=== PATIENT | female | born 1945 | race Caucasian/White ===

== ENCOUNTER 2021-09-09 19:29 | Emergency (ER) | payer MEDICARE, SELFPAY ==
[2021-09-09 19:39] VITALS: BP 155/110; PULSE 75; RESP 18; TEMP 36.8; O2SAT 92
[2021-09-09 19:58] VITALS: BP 155/110; PULSE 75; RESP 18; TEMP 36.8; O2SAT 92
--- NOTE | 2021-09-09 20:00 | ED.FEMALEGU ---
HPI - Female Genitourinary General Chief complaint: Urogenital-Female Stated complaint: bladder infection Time Seen by Provider: 09/09/21 19:55 Source: patient Mode of arrival: ambulatory Limitations: no limitations History of Present Illness HPI Narrative: 76-year-old female who presents to [facility] with complaints of 3-day history of urinary burning, pain and pressure with urination and urinary frequency and urgency. Patient voices prior history of urinary tract infection. Patient states that she has taken Macrobid in the past. Discussed recommendation of Keflex instead for UTI, patient reports can take penicillin.Patient report that she has no vaginal discharge or itching.Patient denies any fevers chills or sweats, denies any nausea or vomiting. MD elicited complaint: UTI Onset (ago): day(s) (3) Related Data Home Medications Medication Instructions Recorded Confirmed albuterol sulfate 90 mcg/actuation inh inhalation 09/09/21 aerosol inhaler (ProAir HFA) albuterol sulfate 90 mcg/actuation inhalation 09/09/21 aerosol inhaler (ProAir HFA) chlordiazepoxide HCl 25 mg capsule cap 09/09/21 fenofibrate 160 mg tablet tablet 09/09/21 ipratropium bromide 42 mcg (0.06 spray intranasal 09/09/21 %) nasal spray levothyroxine 125 mcg tablet tablet 09/09/21 losartan 50 mg tablet tablet 09/09/21 metoprolol succinate 50 mg tablet PO 09/09/21 tablet,extended release 24 hr ofloxacin 0.3 % ear drops drp 09/09/21 potassium chloride 8 mEq tablet PO 09/09/21 tablet,extended release pravastatin 20 mg tablet tablet 09/09/21 Allergies Allergy/AdvReac Type Severity Reaction Status Date / Time azithromycin Allergy Intermediate Rash Verified 12/06/17 19:05 moxifloxacin Allergy Intermediate Other Verified 12/06/17 19:05 Sulfa (Sulfonamide Allergy Intermediate Other Verified 12/06/17 19:05 Antibiotics) caffeine Allergy Unknown Other Verified 12/06/17 19:05 ciprofloxacin Allergy Unknown BLISTERS Verified 12/06/17 19:54 IN MOUTH doxycycline Allergy Unknown N/V Verified 12/06/17 19:54 propoxyphene Allergy Unknown Other Verified 12/06/17 19:05 acetaminophen AdvReac Intermediate Nausea and Verified 12/06/17 19:05 Vomiting aspirin AdvReac Intermediate Nausea and Verified 12/06/17 19:05 Vomiting ceftibuten AdvReac Intermediate Other Verified 12/06/17 19:05 hydrocodone AdvReac Intermediate Nausea and Verified 12/06/17 19:05 Vomiting Review of Systems Review of Systems: CONSTITUTIONAL: Denies fever, chills, or sweats. EYES: Denies visual changes, redness, or discharge. ENT: Denies rhinorrhea, congestion, sore throat, or otalgia. CARDIOVASCULAR: No chest pain, palpitations, or edema. RESPIRATORY: Denies cough or acute dyspnea uses home oxygen GASTROINTESTINAL: Denies abdominal pain, nausea, vomiting, or diarrhea. GENITOURINARY:Positive for dysuria no visible hematuria. SKIN: Denies rash or itching. MUSCULOSKELETAL: Denies back pain, joint pain, or myalgia. NEUROLOGIC: Denies headache, numbness, or weakness. PSYCHIATRIC: Positive history anxiety or depression. PMFSH Comments At time of signature, agree with nursing past medical, surgical, social and family history. There is no relevant family history pertinent to the presenting complaint Exam Narrative: GENERAL: Chronic ill-appearing, well-nourished, and in no acute distress. HEAD: Normocephalic, atraumatic. EYES: PERRLA and EOMI. ENT: Nares clear, no rhinorrhea or epistaxis. Mucous membranes moist. Tm's normal with good light reflex, throat pink with no lesions or exudates or tonsil swelling NECK: Supple.no lymphadenopathy CHEST: Clear decreased to auscultation. No respiratory distress.Oxygen at 2 liters per nasal cannula SAO2 92% HEART: Regular rate and rhythm. No murmur heard. Normal peripheral pulses. ABDOMEN: Soft, nontender to palpation, nondistended, normal active bowel sounds.No CVA tenderness on exam EXTREMITIES: Normal range of motion. No toni
[2021-09-09 20:12] VITALS: BP 172/61
== END 2021-09-09 20:20 | disposition home or self-care (01) ==
PROVIDERS: Emergency Provider Registered Nurse
DX: N39.0 Urinary tract infection, site not specified (principal)
CPT/HCPCS: 81003; 87086; 99203; G0463